=== PATIENT | male | born 1965 ===

== ENCOUNTER 2021-06-12 12:04 | Emergency (ER) | payer OTHER ==
[~2021-06-12] VITALS: Ht 177.8 cm; Wt 99.8 kg
[2021-06-12] MEDS ORDERED: NS IV 1000 ML 1,000 ML IV SCH (12:30)
[2021-06-12 12:36] LABS: BASOPHILS % (AUTO) 0 % (0-10); EOSINOPHILS # (AUTO) 0.2 10^3/uL (0.0-0.3); EOSINOPHILS % (AUTO) 2 % (0-10); HEMATOCRIT 45 % (40-54); HEMOGLOBIN 15.7 g/dL (13.3-17.7); LYMPHOCYTES % (AUTO) 20 % (12-44); MEAN CORPUSCULAR HEMOGLOBIN 33 pg (25-34); MEAN CORPUSCULAR HGB CONC 35 g/dL (32-36); MEAN CORPUSCULAR VOLUME 92 fL (80-99); MEAN PLATELET VOLUME 10.4 fL (9.0-12.2); MONOCYTES # (AUTO) 0.7 10^3/uL (0.0-1.0); MONOCYTES % (AUTO) 7 % (0-12); NEUTROPHILS # (AUTO) 7.1 10^3/uL (1.8-7.8); NEUTROPHILS % (AUTO) 70 % (42-75); PLATELET COUNT 277 10^3/uL (130-400)
[2021-06-12 12:39] LABS: ALBUMIN 4.8 GM/DL (3.2-4.5); CHLORIDE 102 MMOL/L (98-107); POTASSIUM 4.7 MMOL/L (3.6-5.0); SODIUM 137 MMOL/L (135-145)
[2021-06-12 12:40] LABS: CALCIUM 10.5 MG/DL (8.5-10.1)
[2021-06-12 12:42] LABS: GLUCOSE 116 MG/DL (70-105); TOTAL PROTEIN 8.7 GM/DL (6.4-8.2)
[2021-06-12 12:43] LABS: CARBON DIOXIDE 21 MMOL/L (21-32)
[2021-06-12 12:44] LABS: BILIRUBIN,TOTAL 0.8 MG/DL (0.1-1.0)
[2021-06-12 12:45] LABS: ALKALINE PHOSPHATASE 74 U/L (40-136); CREATININE SERUM 1.27 MG/DL (0.60-1.30); GFR ESTIMATED 59
[2021-06-12 12:46] LABS: BUN/CREATININE RATIO 17
[2021-06-12 12:48] LABS: ALANINE AMINOTRANSFERASE 126 U/L (0-55); CREATINE KINASE 131 U/L (30-200)
[2021-06-12 12:54] LABS: CREATINE KINASE MB 2.2 NG/ML (<6.6)
[2021-06-12 13:28] LABS: CLARITY,URINE CLEAR; COLOR,URINE YELLOW; GLUCOSE, URINE (UA) NEGATIVE (NEGATIVE); KETONES,URINE NEGATIVE (NEGATIVE); LEUKOCYTE ESTERASE ,URINE NEGATIVE (NEGATIVE); NITRITE,URINE NEGATIVE (NEGATIVE); PH,URINE 5.5 (5-9); PROTEIN,URINE TRACE (NEGATIVE)
[2021-06-12 13:43] LABS: BACTERIA,URINE TRACE /HPF; BILIRUBIN,URINE 1+ (NEGATIVE); RBC,URINE RARE /HPF; SQUAMOUS EPITHELIAL CELL,UR RARE /HPF; WBC,URINE RARE /HPF
[2021-06-12 13:44] LABS: HYALINE CASTS, URINE 25-50 /LPF
--- NOTE | 2021-06-12 14:23 | ED General ---
General Chief Complaint: Dizziness/Syncope Stated Complaint: HEAD PAIN;DIZZINESS Nursing Triage Note: PT AMBULATED FROM WAITING ROOM TO ROOM 3. PT C/O DIZZINESS AFTER BEING UP ON ROOF. PT DIAPHORETIC UPON ARRIVAL, DENIES CP OR NAUSEA. Source of Information: Patient Exam Limitations: Language Barrier (AALIYAH SUBRAMANIAN,JEREMY ESCOBAR) History of Present Illness Date Seen by Provider: Jun 12, 2021 Initial Comments Prabhu Lira is a andorran-speaking 56yo M with PMH of cardiac disease and HTN who presents with CC of dizziness/near-syncope. He states that earlier today he was working outside and felt dizziness when standing up suddenly; the episode resolved when he sat down. He states that this has happened before. He endorses headache, but experienced no LOC, shortness of breath, or chest pain during the episode. He states that he drinks water in small amounts due to urinary difficulties. Timing/Duration: 1-3 Hours Severity: Mild Modifying Factors: improves with Movement (Sudden standing) Associated Systoms: Headaches (AALIYAH SUBRAMANIAN MED STUDENT) Allergies and Home Medications Allergies Coded Allergies: No Known Drug Allergies (Unverified , 06/12/21) Review of Systems Review of Systems Constitutional: see HPI EENTM: no symptoms reported Respiratory: no symptoms reported Cardiovascular: no symptoms reported Gastrointestinal: no symptoms reported Genitourinary: hesitancy Musculoskeletal: no symptoms reported Skin: no symptoms reported Psychiatric/Neurological: No Symptoms Reported Hematologic/Lymphatic: No Symptoms Reported Immunological/Allergic: no symptoms reported (AALIYAH SUBRAMANIAN,JEREMY STUDENT) Past Svzuhol-Ghdmsq-Nmaywy Hx Patient Social History Tobacco Use?: Yes Tobacco type used: Cigarettes Smoking Status: Current Everyday Smoker Substance use?: No Alcohol Use?: Yes Alcohol Frequency: Once in a while Pt feels they are or have been: No (AALIYAH SUBRAMANIAN,MED STUDENT) Immunizations Up To Date First/Initial COVID19 Vaccinat: 05/16/2021 Second COVID19 Vaccination Servando: 06/09/2021 COVID19 Vaccine [employer]: [employer] (AALIYAH SUBRAMANIAN,MED STUDENT) Past Medical History Surgery/Hospitalization HX: CABG (AALIYAH SUBRAMANIAN MED STUDENT) Physical Exam Vital Signs Vital Signs - First Documented 06/12/21 12:10 Temp 36.1 Pulse 79 Resp 19 B/P (MAP) 124/86 (99) Pulse Ox 94 O2 Delivery Room Air (DAYNE ORTIZ MD) Vital Signs Capillary Refill : Less Than 3 Seconds (AALIYAH SUBRAMANIAN,MED STUDENT) Height, Weight, BMI Height: '" Weight: lbs. oz. kg; 31.00 BMI Method: General Appearance: No Apparent Distress HEENT: PERRL/EOMI; No Scleral Icterus (L), No Scleral Icterus (R) Neck: Full Range of Motion, Normal Inspection Respiratory: Normal Breath Sounds, No Respiratory Distress Cardiovascular: Regular Rate, Rhythm Gastrointestinal: Non Tender, Soft Extremity: Normal Capillary Refill Neurologic/Psychiatric: Alert, Oriented x3, Normal Mood/Affect Skin: Normal Color, Warm/Dry (AALIYAH SUBRAMANIAN,MED STUDENT) Progress/Results/Core Measures Suspected Sepsis SIRS Temperature: Pulse: 79 Respiratory Rate: 19 Laboratory Tests 06/12/21 12:23: White Blood Count 10.0 Blood Pressure 124 /86 Mean: 99 Laboratory Tests 06/12/21 12:23: Creatinine 1.27, Platelet Count 277, Total Bilirubin 0.8 (AALIYAH SUBRAMANIAN,MED STUDENT) Results/Orders Lab Results Laboratory Tests Test 06/12/21 12:23 06/12/21 13:21 06/12/21 15:44 Range/Units White Blood Count 10.0 4.3-11.0 10^3/uL Red Blood Count 4.83 4.30-5.52 10^6/uL Hemoglobin 15.7 13.3-17.7 g/dL Hematocrit 45 40-54 % Mean Corpuscular Volume 92 80-99 fL Mean Corpuscular Hemoglobin 33 25-34 pg Mean Corpuscular Hemoglobin Concent 35 32-36 g/dL Red Cell Distribution Width 12.1 10.0-14.5 % Platelet Count 277 130-400 10^3/uL Mean Platelet Volume 10.4 9.0-12.2 fL Immature Granulocyte % (Auto) 1 % Neutrophils (%) (Auto) 70 42-75 % Lymphocytes (%) (Auto) 20 12-44 % Monocytes (%) (Auto) 7 0-12 % Eosinophils (%) (Auto) 2 0-10 % Basophils (%) (Auto) 0 0-10 % Neutrophils # (Auto) 7.1 1.8-7.8 10^3/uL Lymphocytes # (Auto) 2.0 1.0-4.0 10^3/uL Monocytes # (Auto) 0.7 0.0-1.0 10^3/uL Eosinophils # (Auto) 0.2 0.0-0.3 10^3/uL Basophils # (Auto) 0.0 0.0-0.1 10^3/uL Immature Granulocyte # (Auto) 0.1 0.0-0.1 10^3/uL Sodium Level 137 135-145 MMOL/L Potassium Level 4.7 3.6-5.0 MMOL/L Chloride Level 102 98-107 MMOL/L Carbon Dioxide Level 21 21-32 MMOL/L Anion Gap 14 5-14 MMOL/L Blood Urea Nitrogen 21 H 7-18 MG/DL Creatinine 1.27 0.60-1.30 MG/DL Estimat Glomerular Filtration Rate 59 BUN/Creatinine Ratio 17 Glucose Level 116 H 70-105 MG/DL Calcium Level 10.5 H 8.5-10.1 MG/DL Corrected Calcium 8.5-10.1 MG/DL Total Bilirubin 0.8 0.1-1.0 MG/DL Aspartate Amino Transf (AST/SGOT) 50 H 5-34 U/L Alanine Aminotransferase (ALT/SGPT) 126 H 0-55 U/L Alkaline Phosphatase 74 40-136 U/L Total Creatine Kinase 131 30-200 U/L Creatine Kinase MB 2.2 <6.6 NG/ML Total Protein 8.7 H 6.4-8.2 GM/DL Albumin 4.8 H 3.2-4.5 GM/DL Urine Color YELLOW Urine Clarity CLEAR Urine pH 5.5 5-9 Urine Specific [place] 1.025 H 1.016-1.022 Urine Protein TRACE H NEGATIVE Urine Glucose (UA) NEGATIVE NEGATIVE Urine Ketones NEGATIVE NEGATIVE Urine Nitrite NEGATIVE NEGATIVE Urine Bilirubin 1+ H NEGATIVE Urine Urobilinogen 0.2 < = 1.0 MG/DL Urine Leukocyte Esterase NEGATIVE NEGATIVE Urine RBC (Auto) NEGATIVE NEGATIVE Urine RBC RARE /HPF Urine WBC RARE /HPF Urine Squamous Epithelial Cells RARE /HPF Urine Crystals NONE /LPF Urine Bacteria TRACE /HPF Urine Casts PRESENT /LPF Urine Hyaline Casts 25-50 H /LPF Urine Mucus SMALL H /LPF Urine Culture Indicated NO Troponin I < 0.028 <0.028 NG/ML (DAYNE ORTIZ MD) My Orders Orders - DAYNE ORTIZ MD Troponin I (8/9/21 15:44) (DAYNE ORTIZ MD) Vital Signs/I&O 06/12/21 06/12/21 12:10 18:16 Temp 36.1 Pulse 79 75 Resp 19 18 B/P (MAP) 124/86 (99) 134/91 Pulse Ox 94 95 O2 Delivery Room Air 06/13/21 00:00 Intake Total 1000 ml Balance 1000 ml (DAYNE ORTIZ MD) Vital Signs/I&O Capillary Refill : Less Than 3 Seconds (AALIYAH SUBRAMANIAN,MED STUDENT) Blood Pressure Mean: 99 ECG Initial ECG Impression Date: Jun 12, 2021 Initial ECG Impression Time: 12:14 Initial ECG Rate: 77 Initial ECG Rhythm: Normal Sinus Comment Sinus rhythm with no ischemic ST elevation or depression. LVH. PVC noted. (DAYNE ORTIZ MD) Departure Impression Primary Impression: Lightheadedness Additional Impressions: Trigeminy History of coronary artery disease Disposition: HOME, SELF-CARE Condition: Improved Departure-Patient Inst. Decision time for Depature: 16:03 (DAYNE ORTIZ MD) Patient Instructions: Ventricular Premature Beats Add. Discharge Instructions: Continue your medications as previously directed and see your technical associate as soon as possible. In the meantime stay well-hydrated. If you experience lightheadedness, weakness, or shortness of breath at any time, please hydrate and rest. If your symptoms are severe or you have chest pain, please call 911 or go directly to the nearest emergency room. You are having premature beats called PVCs. They are sometimes frequent in a pattern called trigeminy. This needs to be discussed with your technical associate as soon as possible. Refrain from extremely labor-intensive work or prolonged periods of time in the heat until you are cleared by your technical associate. Call with any questions or concerns. Return to the ER if you have any worsening of your condition. All discharge instructions reviewed with patient and/or family. Voiced understanding. AALIYAH SUBRAMANIAN,MED STUDENT Jun 12, 2021 14:23 DAYNE ORTIZ MD Jun 12, 2021 16:05
[2021-06-12 18:16] VITALS: BP 134/91
--- OUTSIDE RECORDS SUMMARY | 2021-06-13 08:15 | XMS REPORT | Clinical Summary ---
Author Author [facility] Organization [facility] Address Unknown Phone Unavailable Care Team Providers Care Manufacturing Leader Name Role Phone PCP Unavailable Allergies Not on File Medications Not on file Active Problems Not on file Social History Date Tobacco Use Types Packs/Day Years Used Never Assessed Sex Assigned at Date Recorded Not on file Last Filed Vital Signs Not on file Plan of Treatment Not on file Results Not on filefrom Last 3 Months
== END 2021-06-12 18:13 | disposition home or self-care (01) ==
LOC: ER 12:07
DX: R42 Dizziness and giddiness (principal); R00.8 Other abnormalities of heart beat; I10 Essential (primary) hypertension; F17.210 Nicotine dependence, cigarettes, uncomplicated; Z86.79 Personal history of other diseases of the circulatory system
CPT/HCPCS: 36415; 80053; 81000; 82550; 82553; 84484; 85025; 93005